=== PATIENT | male | born 1975 | race African-American/Black ===

== ENCOUNTER 2017-04-13 14:33 | Emergency (ER) | payer MEDICAID, OTHER ==
[~2017-04-13] VITALS: Ht 167.6 cm; Wt 67.6 kg
[2017-04-13 14:50] VITALS: BP 131/83
[2017-04-13] MEDS ORDERED: TRAMADOL HCL 50 MG TABLET (14:56)
[2017-04-13] MEDS ORDERED: BANOPHEN 25 MG (14:56)
--- NOTE | 2017-04-13 15:41 | NUR ---
PT LEFT AMA .SIGNED AMA FORM
== END 2017-04-13 15:44 | disposition left against medical advice (07) ==
LOC: ER 14:36
DX: R51 Headache (principal); M54.2 Cervicalgia; M54.9 Dorsalgia, unspecified; F17.200 Nicotine dependence, unspecified, uncomplicated; F41.9 Anxiety disorder, unspecified; G40.909 Epilepsy, unspecified, not intractable, without status epilepticus; V49.50XA Passenger injured in collision with unspecified motor vehicles in traffic accident, initial encounter; Y92.410 Unspecified street and highway as the place of occurrence of the external cause; Y93.89 Activity, other specified; Y99.8 Other external cause status
CPT/HCPCS: A4606; Z7502; Z7610